=== PATIENT | female | born 1995 | race Caucasian/White ===

== ENCOUNTER 2016-12-31 01:40 | Emergency (ER) | payer OTHER ==
[~2016-12-31] VITALS: Ht 157.5 cm; Wt 115.9 kg
[2016-12-31 01:42] VITALS: Ht 157.5 cm; Wt 115.9 kg
[2016-12-31] MEDS ORDERED: ONDANSETRON 4 MG INJ IV STA (03:45)
[2016-12-31] MEDS ORDERED: SOD CHLORIDE 0.9% 1,000 ML IV STA (03:45)
--- NOTE | 2016-12-31 03:52 | ERD ---
ER Documentation Chief Complaint Date/Time DATE: 12/31/16 TIME: 03:51 Chief Complaint ABD PAIN, N/V/D TODAY, 16 WKS HPI 21-year-old female presents to emergency department for complaint of nausea vomiting and diarrhea that started today. Patient is complaining of generalized abdominal pain describes the pain cramping 4/10 scale, accompanied with vomiting and diarrhea. Patient apparently 16 weeks . Patient denies any vaginal bleeding. Patient denies any flank pain. Patient denies any fever or chills. Patient did not take any medications to help with symptoms. ROS All systems reviewed and are negative except as per history of present illness. Medications Home Meds Active Scripts Ondansetron (Ondansetron Odt) 4 Mg Tab.rapdis, 4 MG PO Q6H Y for NAUSEA AND/OR VOMITING, #20 TAB Prov:SOULEYMANE JOHNSON SENIOR PRODUCT ANALYST 12/31/16 Acetaminophen* (Tylophen*) 500 Mg Capsule, 1 CAP PO Q6H Y for PAIN AND OR ELEVATED TEMP, #20 CAP Prov:SOULEYMANE JOHNSON NP 12/31/16 Cephalexin* (Keflex*) 500 Mg Capsule, 500 MG PO QID for 10 Days, CAP Prov:SOULEYMANE JOHNSON SENIOR PRODUCT ANALYST 12/31/16 Reported Medications [none] Unknown Strength No Conflict Check 12/31/16 Allergies Allergies: Coded Allergies: No Known Drug Allergy (Verified Allergy, Unknown, NONE, 05/07/09) PMhx/Soc History of Surgery: No Anesthesia Reaction: No Hx Neurological Disorder: No Hx Respiratory Disorders: No Hx Cardiac Disorders: No Hx Psychiatric Problems: No Hx Miscellaneous Medical Probl: Yes (CHROHN'S DISEASE) Hx Alcohol Use: Yes ("OCASSIONALY") Hx Substance Use: No Hx Tobacco Use: Yes FmHx Family History: No coronary disease, No diabetes, No other Physical Exam Vitals Vital Signs Date Time Temp Pulse Resp B/P Pulse Ox O2 Delivery O2 Flow Rate FiO2 12/31/16 05:25 98.6 86 20 111/68 98 Room Air 12/31/16 01:42 98.5 105 18 130/85 97 Physical Exam GENERAL: The patient is well developed and appropriate for usual state of health, in no apparent distress. CHEST: Clear to auscultation bilaterally. There are no rales, wheezes or rhonchi. HEART: Regular rate and rhythm. No murmurs, clicks, rubs or gallops. No S3 or S4. ABDOMEN: Soft, nontender and nondistended. Hyperactive bowel sounds. No rebound or guarding. No gross peritonitis. No gross organomegaly or masses. No Hernandez sign or McBurney point tenderness. BACK: No midline or flank tenderness. EXTREMITIES: Equal pulses bilaterally. There is no peripheral clubbing, cyanosis or edema. No focal swelling or erythema. Full range of motion. Grossly neurovascularly intact. NEURO: Alert and oriented. Cranial nerves 2-12 intact. Motor strength in all 4 extremities with 5/5 strength. Sensation grossly intact. Normal speech and gait. SKIN: There is no apparent rash or petechia. The skin is warm and dry. HEMATOLOGIC AND LYMPHATIC: There is no evidence of excessive bruising or lymphedema. No gross cervical, axillary, or inguinal lymphadenopathy. Result Diagram: 12/31/16 0355 12/31/16 0355 Results 24 hrs Laboratory Tests Test 12/31/16 03:55 12/31/16 04:00 White Blood Count 10.910^3/ul Red Blood Count 4.1010^6/ul Hemoglobin 12.1g/dl Hematocrit 35.6% Mean Corpuscular Volume 86.8fl Mean Corpuscular Hemoglobin 29.5pg Mean Corpuscular Hemoglobin Concent 34.0g/dl Red Cell Distribution Width 12.4% Platelet Count 89852^3/UL Mean Platelet Volume 10.2fl Neutrophils % 80.0% Lymphocytes % 13.4% Monocytes % 4.8% Eosinophils % 0.5% Basophils % 0.2% Nucleated Red Blood Cells % 0.0/100WBC Neutrophils # 8.810^3/ul Lymphocytes # 1.510^3/ul Monocytes # 0.510^3/ul Eosinophils # 0.110^3/ul Basophils # 0.010^3/ul Nucleated Red Blood Cells # 0.010^3/ul Sodium Level 138mmol/L Potassium Level 3.7mmol/L Chloride Level 104mmol/L Carbon Dioxide Level 23mmol/L Anion Gap 15 Blood Urea Nitrogen 6mg/dl Creatinine 0.42mg/dl Glucose Level 98mg/dl Calcium Level 9.2mg/dl Total Bilirubin 0.4mg/dl Direct Bilirubin 0.00mg/dl Indirect Bilirubin 0.4mg/dl Aspartate Amino Transf (AST/SGOT) 155IU/L Alanine Aminotransferase (ALT/SGPT) 119IU/L Alkaline Phosphatase 64IU/L Total Protein 7.6g/dl Albumin 4.6g/dl Globulin 3.00g/dl Albumin/Globulin Ratio 1.53 Urine Color LT. YELLOW Urine Clarity CLEAR Urine pH 6.0 Urine Specific Given 1.020 Urine Ketones 15 Urine Nitrite NEGATIVE Urine Bilirubin NEGATIVE Urine Urobilinogen 0.2 E.U./dL Urine Leukocyte Esterase 2+ Urine Microscopic RBC 5-10/HPF Urine Microscopic WBC 5-10/HPF Urine Squamous Epithelial Cells FEW Urine Bacteria FEW Urine Hemoglobin TRACE Urine Glucose NEGATIVE% Urine Total Protein NEGATIVE Current Medications Medications (Trade) Dose Ordered Sig/Grecia Route PRN Reason Start Time Stop Time Status Last Admin Dose Admin Sodium Chloride (NS) 1,000 ml @ 1,000 mls/hr Q1H STAT IV 12/31/16 03:45 12/31/16 04:44 DC 12/31/16 03:59 Ondansetron HCl 4 mg 4 mg ONCE STAT IV 12/31/16 03:45 12/31/16 03:47 DC 12/31/16 03:58 Ceftriaxone Sodium (Rocephin) 50 ml @ 100 mls/hr ONCE ONCE IVPB 12/31/16 05:00 12/31/16 05:29 DC 12/31/16 04:54 Patient was given medicines for fever control here in the emergency department. After treatment, patient temperature improved and lower. Patient appears well and is hemodynamically stable. Normal saline IV bolus was given here in emergency department for rehydration, patient tolerated IV fluids.Patient was given Zofran here in the emergency department. After treatment, patient was able to tolerate po fluids here in the emergency department without any vomiting. There is no signs and symptoms of dehydration. PROCEDURE: Obstetrical ultrasound, limited. CLINICAL INDICATION: Pelvic pain. TECHNIQUE: Multiple sonographic images of the pelvis were obtained using transabdominal technique. Images were obtained with royal scale and color Doppler. The images were reviewed on a PACS workstation. COMPARISON: No prior studies are available for comparison. FINDINGS: There is a single living intrauterine gestation with the fetus in a vertex presentation. heart tones of 146 beats per minute are identified. The placenta is posterior in location, grade 0. There is normal amniotic fluid volume with the maximum vertical pocket measuring 4.7 cm. There is no evidence of placenta previa or abruption. Measurements were made in order to determine age. The results are as follows: BPD = 3.52 cm HC = 13.41 cm AC = 11.74 cm FL = 2.29 cm. Estimated gestational age of approximately 17 weeks and 0 days. The estimated date of delivery is 06/10/2017. The EFW = 183 +/- 28 grams. Estimated weight percentage equals 53.8%. IMPRESSION: Single viable intrauterine gestation of approximately 17 weeks and 0 days, with an ultrasound MIRACLE of 06/10/2017. .Roger Keane MD, MD Date Time Electronically viewed and signed by .Roger Keane MD, MD on 12/31/2016 05:06 .T/ Procedures/MDM Medical Decision Making: Patient's symptoms of vomiting and diarrhea most likely consistent with viral gastroenteritis. Patient's abdominal pain that is also from this, patient also has urinary tract infection and will be treated. Patient has a viable . There is low suspicion for abdominal emergencies at this time. Patients abdominal exam is normal at this time. Patients radiology exam does not show any abdominal emergencies at this time. There is low suspicion for appendicitis, cholecystitis, abdominal aortic aneurysms or peritonitis at this time. There is low suspicion for sepsis. Patient appears well and is hemodynamically stable. Disposition: Home. Condition: Stable Prescription Keflex, Tylenol, Zofran Instructions: Patient is advised to take medications as prescribed. Patient is advised to rest, increase fluid intake and do brat diet for next 1-2 days and progress as tolerated. Patient is advised that if symptoms are worse, severe abdominal pain, uncontrolled vomiting, high fever, severe flank pain, worst signs and symptoms, to return to the emergency department immediately. Otherwise, patient can follow up with primary care doctor in 5-7 days. Departure Diagnosis: Primary Impression: Viral gastroenteritis Additional Impressions: UTI (urinary tract infection) Urinary tract infection type: acute cystitis Hematuria presence: without hematuria Qualified Code: N30.00 - Acute cystitis without hematuria Intrauterine Condition: Stable Patient Instructions: Gastroenteritis, Viral (6Y-Adult), Understanding Urinary Tract Infections (UTIs) Additional Instructions: Patient is advised to take medications as prescribed. Patient is advised to rest , increase fluid intake and do brat diet for next 1-2 days and progress as tolerated. Patient is advised that if symptoms are worse, severe abdominal pain , uncontrolled vomiting, high fever, severe flank pain, worst signs and symptoms , to return to the emergency department immediately. Otherwise, patient can follow up with primary care doctor in 5-7 days. SOULEYMANE JOHNSON NP Dec 31, 2016 03:52
[2016-12-31 04:14] LABS: ADD SCAN DIFF NO
[2016-12-31 04:16] LABS: BASOPHILS % 0.2 % (0.0-2.0); EOSINOPHILS # 0.1 10^3/ul (0.0-0.5); EOSINOPHILS % 0.5 % (0.0-7.0); HEMATOCRIT 35.6 % (37.0-47.0); HEMOGLOBIN 12.1 g/dl (12.0-16.0); LYMPHOCYTES # 1.5 10^3/ul (0.8-2.9); LYMPHOCYTES % 13.4 % (15.0-51.0); MEAN CORPUSCULAR HEMOGLOBIN 29.5 pg (29.0-33.0); MEAN CORPUSCULAR VOLUME 86.8 fl (82.0-101.0); MEAN PLATELET VOLUME 10.2 fl (7.4-10.4); MONOCYTE # 0.5 10^3/ul (0.3-0.9); MONOCYTES % 4.8 % (0.0-11.0); NEUTROPHIL # 8.8 10^3/ul (1.6-7.5); PLATELET COUNT 250 10^3/UL (140-415); RED CELL DISTRIBUTION WIDTH 12.4 % (11.5-14.5); WHITE BLOOD COUNT 10.9 10^3/ul (4.8-10.8)
[2016-12-31 04:19] LABS: ADD UMIC YES; UR BILIRUBIN (Dip) NEGATIVE (NEGATIVE); UR BLOOD (Dip) TRACE (NEGATIVE); UR CLARITY CLEAR (CLEAR); UR COLOR LT. YELLOW (YELLOW); UR GLUCOSE (Dip) NEGATIVE (NEGATIVE); UR KETONES (Dip) 15 (NEGATIVE); UR LEUKOCYTE ESTERASE (Dip) 2+ (NEGATIVE); UR NITRITE (Dip) NEGATIVE (NEGATIVE); UR TOTAL PROTEIN (Dip) NEGATIVE (NEGATIVE); UR UROBILINOGEN (Dip) 0.2 E.U./dL (0.1-1.0)
[2016-12-31 04:30] LABS: UR BACTERIA FEW; UR SQUAMOUS EPITHELIAL CELL FEW
[2016-12-31 04:36] LABS: ALBUMIN 4.6 g/dl (3.3-4.9); ALBUMIN/GLOBULIN RATIO 1.53; BILIRUBIN,INDIRECT 0.4 mg/dl (0-1.1); BILIRUBIN,TOTAL 0.4 mg/dl (0.2-1.3); CALCIUM 9.2 mg/dl (8.4-10.2); CREATININE 0.42 mg/dl (0.44-1.00); POTASSIUM 3.7 mmol/L (3.5-5.1); TOTAL PROTEIN 7.6 g/dl (6.1-8.1)
[2016-12-31] MEDS ORDERED: CEFTRIAXONE 1 GM/50 ML (PMX) 50 ML IVPB ONE (05:00)
--- NOTE | 2016-12-31 05:06 | RADRPT ---
PROCEDURE: Obstetrical ultrasound, limited. CLINICAL INDICATION: Pelvic pain. TECHNIQUE: Multiple sonographic images of the pelvis were obtained using transabdominal technique . Images were obtained with royal scale and color Doppler. The images were reviewed on a PACS works tation. COMPARISON: No prior studies are available for comparison. FINDINGS: There is a single living intrauterine gestation with the fetus in a vertex presentation. hear t tones of 146 beats per minute are identified. The placenta is posterior in location, grade 0. Th ere is normal amniotic fluid volume with the maximum vertical pocket measuring 4.7 cm. There is no evidence of placenta previa or abruption. Measurements were made in order to determine age. The results are as follows: BPD =3.52 cm HC =13.41 cm AC =11.74 cm FL =2.29 cm. Estimated gestational age of approximately 17 weeks and 0 days. The estimated date of delivery is 06/10/2017. The EFW = 183 +/- 28 grams. Estimated weight percentage equals 53.8%. IMPRESSION: Single viable intrauterine gestation of approximately 17 weeks and 0 days, with an ultrasound MIRACLE of 06/10/2017. .Roger Keane MD, MD Date Time Electronically viewed and signed by .Roger Keane MD, MD on 12/31/2016 05:06 .T/
[2016-12-31] MEDS ORDERED: ONDA4TAB14 PO (05:19)
[2016-12-31] MEDS ORDERED: CEPH-443 PO (05:19)
[2016-12-31] MEDS ORDERED: ACET500C5 PO (05:19)
[2016-12-31 05:25] VITALS: BP 111/68; PULSE 86; RESP 20; TEMP 98.6
== END 2016-12-31 05:43 | disposition home or self-care (01) ==
LOC: FTE 01:40
DX: O98.512 Other viral diseases complicating pregnancy, second trimester (principal); A08.4 Viral intestinal infection, unspecified; O23.12 Infections of bladder in pregnancy, second trimester; O21.9 Vomiting of pregnancy, unspecified; Z3A.17 17 weeks gestation of pregnancy; Z87.891 Personal history of nicotine dependence
CPT/HCPCS: 36415; 76805; 80053; 81001; 85025; 86900; 86901; 96374; 96375; J0696; J2405; J7030; Z7502